=== PATIENT | female | born 1995 | race African-American/Black ===

== ENCOUNTER → 2023-10-16 11:24 | Outpatient (REF) | payer OTHER, SELFPAY ==
[2023-10-17 15:35] LABS: Mumps Virus IgG Positive; Varicella Zoster IgG (VZV) Positive
[2023-10-17 19:28] LABS: Hepatitis B Surface Antibody Positive
[2023-10-17 19:39] LABS: Rubella Positive
[2023-10-18 17:19] LABS: Rubeola (Measles) IgG Positive
[2023-10-19 02:59] LABS: Quantiferon Mitogen minus NIL 9.83 IU/mL; Quantiferon NIL 0.03 IU/mL; Quantiferon TB Gold Plus Negative (Negative)
== END ==
LOC: REG 11:24
PROVIDERS: ATTENDING PHYSICIAN Nurse Practitioner
DX: Z23 Encounter for immunization (principal)
CPT/HCPCS: 36415; 86480; 86706; 86735; 86762; 86765; 86787